=== PATIENT | female | born 1970 | race Two or more races ===

== ENCOUNTER 2016-03-30 09:33 | Emergency (ER) | payer SELFPAY ==
[~2016-03-30] VITALS: Ht 157.5 cm; Wt 76.2 kg
[2016-03-30 09:52] VITALS: BP 131/63
[2016-03-30 11:13] LABS: FREE T4 0.96 ng/dL (0.76-1.46)
--- NOTE | 2016-03-30 11:27 | PHYS DOC ---
Past Medical History Past Medical History: GERD Past Surgical History: Other Additional Past Surgical Histo: ECTOPIC ( TUBAL REMOVAL TO RIGHT SIDE ) Alcohol Use: None Drug Use: None Adult General Chief Complaint Chief Complaint: SORE THROAT HPI HPI Patient is a 45 year old since to emergency department stating that she's had a cough and congestion for the last 2 weeks which is improved. She is now stating that she has a sore throat around her Emmanuel apple. She states that this is been hurting and has increased pain whenever she moves around. She has not taken anything for pain and discomfort. She denies having any history of thyroid problems. She is able to swallow without difficulty. Patient is [place]- speaking only all information was obtained through nursing staff who speaks [place]. Review of Systems Review of Systems Constitutional: Denies fever or chills [] Eyes: Denies change in visual acuity, redness, or eye pain [] HENT: Denies nasal congestion. C/o pain near the emmanuel apple Respiratory: Denies cough or shortness of breath [] Cardiovascular: No additional information not addressed in HPI [] GI: Denies abdominal pain, nausea, vomiting, bloody stools or diarrhea [] : Denies dysuria or hematuria [] Musculoskeletal: Denies back pain or joint pain [] Integument: Denies rash or skin lesions [] Neurologic: Denies headache, focal weakness or sensory changes [] Allergies Allergies Allergies Coded Allergies Type Severity Reaction Last Updated Verified No Known Drug Allergies 08/18/14 No Physical Exam Physical Exam Constitutional: Well developed, well nourished, no acute distress, non-toxic appearance. [] HENT: Normocephalic, atraumatic, bilateral external ears normal, oropharynx moist, no oral exudates, nose normal. Lateral tympanic membranes appear to be normal. Throat with no erythematous no drainage noted no exudate noted. Patient does have a slightly enlarged thyroid. Eyes: PERRLA, EOMI, conjunctiva normal, no discharge. [] Neck: Normal range of motion, no tenderness, supple, no stridor. [] Cardiovascular:Heart rate regular rhythm, no murmur [] Lungs & Thorax: Bilateral breath sounds clear to auscultation [] Skin: Warm, dry, no erythema, no rash. [] Back: No tenderness Extremities: No tenderness, no cyanosis, no clubbing, ROM intact, no edema. [] Neurologic: Alert and oriented X 3, normal motor function, normal sensory function, no focal deficits noted. [] Psychologic: Affect normal, judgement normal, mood normal. [] Current Patient Data Vital Signs Vital Signs Date Time Temp Pulse Resp B/P Pulse Ox O2 Delivery O2 Flow Rate FiO2 03/30/16 09:52 98.3 93 16 99 Room Air 98.3 Lab Values Laboratory Tests Test 03/30/16 10:39 Thyroid Stimulating Hormone (TSH) 2.132uIU/mL (0.358-3.74) Free Thyroxine 0.96ng/dL (0.76-1.46) EKG EKG [] Radiology/Procedures Radiology/Procedures [] Course & Med Decision Making Course & Med Decision Making Pertinent Labs and Imaging studies reviewed. (See chart for details) TSH and free T4 was normal. Patient will be encouraged to use Tylenol or ibuprofen for pain and discomfort will also recommend that she follow-up with her primary care physician for further evaluation. Patient will be discharged home in stable condition signs and symptoms to return back to the emergency department has been provided. A shunt agrees with discharge instructions treatment regimens and follow-up recommendations. [] Dragon Disclaimer Dragon Disclaimer This electronic medical record was generated, in whole or in part, using a voice recognition dictation system. Departure Departure Impression: Primary Impression: Sore throat Disposition: 01 HOME, SELF-CARE Condition: STABLE Referrals: NO PCP (PCP) Patient Instructions: Sore Throat, [id number] Additional Instructions: Activity as tolerated. Tylenol or ibuprofen for pain and discomfort. Drink plenty of fluids. Follow-up through primary care physician for further evaluation of your throat discomfort. Return back to emergency prior signs symptoms of become worse. PIPE GUARDADO NP Mar 30, 2016 11:27
== END 2016-03-30 11:45 | disposition home or self-care (01) ==
LOC: ER 09:33
DX: J02.9 Acute pharyngitis, unspecified (principal)
CPT/HCPCS: 36415; 84439; 84443; 99284

== ENCOUNTER 2016-12-03 08:51 | Emergency (ER) | payer OTHER ==
[2016-12-03 09:00] VITALS: BP 144/82
[2016-12-03] MEDS ORDERED: AMOX1TAB61 PO (09:23)
--- NOTE | 2016-12-03 09:23 | PHYS DOC ---
Past Medical History Past Medical History: GERD Past Surgical History: Other Additional Past Surgical Histo: ECTOPIC ( TUBAL REMOVAL TO RIGHT SIDE ) Alcohol Use: None Drug Use: None Adult General Chief Complaint Chief Complaint: EARACHE/EAR PAIN HPI HPI Patient is a 45 year old female presents to the emergency department with a history of right ear pain, sore throat and cough for the last 3 weeks with occasional dizziness. Patient denies fever, chills, nausea or vomiting. Patient has not taken anything for the symptoms. Review of Systems Review of Systems Constitutional: Denies fever or chills [] Eyes: Denies change in visual acuity, redness, or eye pain [] HENT: nasal congestion and sore throat [] Respiratory: Denies cough or shortness of breath [] Cardiovascular: No additional information not addressed in HPI [] GI: Denies abdominal pain, nausea, vomiting, bloody stools or diarrhea [] : Denies dysuria or hematuria [] Musculoskeletal: Denies back pain or joint pain [] Integument: Denies rash or skin lesions [] Neurologic: Denies headache, focal weakness or sensory changes [] Endocrine: Denies polyuria or polydipsia [] Allergies Allergies Allergies Coded Allergies Type Severity Reaction Last Updated Verified No Known Drug Allergies 08/18/14 No Physical Exam Physical Exam Constitutional: Well developed, well nourished, no acute distress, non-toxic appearance. [] HENT: Normocephalic, atraumatic, bilateral external ears normal, oropharynx moist, no oral exudates, nose normal. Bilateral TM normal, patient with right maxillary sinus tenderness, Throat with post nasal drip noted. No enlarged anterior cervical adenopathy noted. Eyes: PERRLA, EOMI, conjunctiva normal, no discharge. [] Neck: Normal range of motion, no tenderness, supple, no stridor. [] Cardiovascular:Heart rate regular rhythm, no murmur [] Lungs & Thorax: Bilateral breath sounds clear to auscultation [] Skin: Warm, dry, no erythema, no rash. [] Extremities: No tenderness, no cyanosis, no clubbing, ROM intact, no edema. [] Neurologic: Alert and oriented X 3, normal motor function, normal sensory function, no focal deficits noted. [] Psychologic: Affect normal, judgement normal, mood normal. [] Current Patient Data Vital Signs Vital Signs Date Time Temp Pulse Resp B/P (MAP) Pulse Ox O2 Delivery O2 Flow Rate FiO2 12/03/16 09:00 98.3 90 18 99 Room Air 98.3 Lab Values Laboratory Tests Test 12/03/16 09:46 POC Urine HCG, Qualitative Hcg negative (Negative) EKG EKG [] Radiology/Procedures Radiology/Procedures [][facility] [address] [place] [address] IMAGING REPORT Signed PATIENT: LEORA IGLESIAS ACCOUNT: [id number] : 1970 LOCATION: ER AGE: 45 SEX: F EXAM STATUS: REG ER ORD. PHYSICIAN: PIPE GUARDADO APRN REASON: dizziness, right sinus pressure, family hx brain tumors PROCEDURE: CT HEAD WO CONTRAST CT brain without contrast. History: Dizziness right-sided pressure for 2 weeks, family history of brain tumors CT scan of brain was done without contrast. There is no intracranial hemorrhage or subdural hematoma. Ventricles are normal in size. There is no mass effect or shift of the midline. MRI is more sensitive for early masses. Sinuses are clear. Impression: 1. No intracranial hemorrhage or definite mass or acute finding noted. One or more of the following individualized dose reduction techniques were utilized for this examination: 1. Automated exposure control 2. Adjustment of the mA and/or kV according to patient size 3. Use of iterative reconstruction technique DICTATED and SIGNED BY: ALBERTO SCHROEDER MD DATE: 12/03/16 1007 CC: PIPE GUARDADO APRN; NO PCP; NON,STAFF ~ Course & Med Decision Making Course & Med Decision Making Pertinent Labs and Imaging studies reviewed. (See chart for details) Patient had stated to the RN that she has a family hx of brain tumors and is concerned because of the dizziness. Patient also stated to the RN that she has had irregular menstrual cycles and would that to be checked as well. CT can negative for abnormalities. Patient was provided with CT results. Patient will be placed on augmentin with recommendations for sudafed and mucinex DM. Recommended plenty of fluids. Tylenol or Ibuprofen for fevers. Patient was recommended to followup with primary care provider for evaluation of irregular menstrual cycle. Patient will be discharged home in stable condition. Signs and symptoms to return to the emergency department has been provided. All questions and concerns have been answered. [] Dragon Disclaimer Dragon Disclaimer This electronic medical record was generated, in whole or in part, using a voice recognition dictation system. Departure Departure Impression: Primary Impression: Sinusitis Disposition: 01 HOME, SELF-CARE Condition: STABLE Referrals: NO PCP (PCP) Patient Instructions: Sinusitis, [id number] Additional Instructions: Activity as tolerated Medication as prescribed Tylenol or Ibuprofen for pain, fever and generalized body aches and discomfort Sudafed and Mucinex DM as prescribed by manufacture over the counter Drink plenty of water, gatorade or propel. Followup with primary care provider in 5-7 days for your irregular menstrual cycle. Return to the emergency department as needed for signs and symptoms that become worse. Scripts Amoxicillin/Potassium Clav (AUGMENTIN 875-125 TABLET) 1 Each Tablet 1 TAB PO BID, #20 TAB Prov: PIPE GUARDADO APRN 12/03/16 Problem Qualifiers Primary Impression: Sinusitis Sinusitis location: unspecified location Chronicity: unspecified Qualified Codes: J32.9 - Chronic sinusitis, unspecified PIPE GUARDADO APRN Dec 03, 2016 09:23
--- NOTE | 2016-12-03 10:13 | RAD ---
CT brain without contrast. History: Dizziness right-sided pressure for 2 weeks, family history of brain tumors CT scan of brain was done without contrast. There is no intracranial hemorrhage or subdural hematoma. Ventricles are normal in size. There is no mass effect or shift of the midline. MRI is more sensitive for early masses. Sinuses are clear. Impression: 1. No intracranial hemorrhage or definite mass or acute finding noted. One or more of the following individualized dose reduction techniques were utilized for this examination: 1. Automated exposure control 2. Adjustment of the mA and/or kV according to patient size 3. Use of iterative reconstruction technique
== END 2016-12-03 10:22 | disposition home or self-care (01) ==
LOC: ER 08:51
DX: J32.0 Chronic maxillary sinusitis (principal); K21.9 Gastro-esophageal reflux disease without esophagitis
CPT/HCPCS: 70450; 81025; 99284-25

== ENCOUNTER 2019-12-16 07:39 | Emergency (ER) | payer OTHER ==
[~2019-12-16] VITALS: Ht 160 cm; Wt 86.0 kg
[~2019-12-16 07:39] MED LIST: AMOX1TAB61 PO
[2019-12-16 07:43] VITALS: BP 141/69
[2019-12-16] MEDS ORDERED: MECL-75 PO (07:53)
[2019-12-16] MEDS ORDERED: PSEU120T9 PO (07:53)
--- NOTE | 2019-12-16 07:53 | PHYS DOC ---
Past Medical History Past Medical History: GERD Past Surgical History: Other Additional Past Surgical Histo: ECTOPIC ( TUBAL REMOVAL TO RIGHT SIDE) Smoking Status: Never Smoker Alcohol Use: None Drug Use: None General Adult EDM: Chief Complaint: EARACHE/EAR PAIN HPI: HPI: Patient is a 48 year old female who presents with a right ear pain that is described as a fullness over the last week is been worse over the last day. Patient describes feeling somewhat off balance with some muffled hearing. Patient denies any nausea or vomiting. Patient has a history of seasonal allergies and that is been active over the last week or so. Patient denies any fevers chills cough or shortness of breath. Patient denies any nausea or vomiting Review of Systems: Review of Systems: Constitutional: Denies fever or chills. [] Eyes: Denies change in visual acuity. [] HENT: Complains of nasal congestion and some right ear fullness with some hearing loss Respiratory: Denies cough or shortness of breath. [] Cardiovascular: Denies chest pain or edema. [] GI: Denies abdominal pain, nausea, vomiting, bloody stools or diarrhea. [] : Denies dysuria. [] Musculoskeletal: Denies back pain or joint pain. [] Integument: Denies rash. [] Neurologic: Denies headache, focal weakness or sensory changes. But has some dizziness Endocrine: Denies polyuria or polydipsia. [] Lymphatic: Denies swollen glands. [] Psychiatric: Denies depression or anxiety. [] Heart Score: Risk Factors: Risk Factors: DM, Current or recent (<one month) smoker, HTN, HLP, family history of CAD, obesity. Risk Scores: Score 0 - 3: 2.5% MACE over next 6 weeks - Discharge Home Score 4 - 6: 20.3% MACE over next 6 weeks - Admit for Clinical Observation Score 7 - 10: 72.7% MACE over next 6 weeks - Early Invasive Strategies Allergies: Allergies: Allergies Coded Allergies Type Severity Reaction Last Updated Verified No Known Drug Allergies 08/18/14 No Physical Exam: PE: Constitutional: Well developed, well nourished, no acute distress, non-toxic appearance. [] HENT: Normocephalic, atraumatic, mild amount of fluid behind the right TM without erythema or loss of landmarks oropharynx moist, no oral exudates, nose normal. [] Eyes: PERRLA, EOMI, conjunctiva normal, no discharge. [] No nystagmus Neck: Normal range of motion, no tenderness, supple, no stridor. [] Cardiovascular:Heart rate regular rhythm, peripheral pulses are intact, cap refill is brisk Lungs & Thorax: Bilateral breath sounds clear, no respiratory distress Abdomen: soft, no tenderness, no masses, no pulsatile masses. [] Skin: Warm, dry, no erythema, no rash. [] Back: No tenderness, no CVA tenderness. [] Extremities: No tenderness, no cyanosis, no clubbing, ROM intact, no edema. [] Neurologic: Alert and oriented X 3, normal motor function, normal sensory function, no focal deficits noted. [] Cerebellar exam grossly intact Psychologic: Affect normal, judgement normal, mood normal. [] EKG: EKG: [] Radiology/Procedures: Radiology/Procedures: [] Course & Med Decision Making: Course & Med Decision Making Pertinent Labs and Imaging studies reviewed. (See chart for details) [] 48-year-old female presents with some muffled hearing and right ear pain as well as some dizziness which is most likely due to a serous otitis media due to seasonal allergies. Patient was placed on decongestants and meclizine for dizziness. Return precautions given. No evidence of acute stroke. No indication for antibiotics at this time. Guillermo Disclaimer: Guillermo Disclaimer: This electronic medical record was generated, in whole or in part, using a voice recognition dictation system. Departure Departure Impression: Primary Impression: Right serous otitis media Disposition: 01 DC HOME SELF CARE/HOMELESS Condition: STABLE Referrals: NO PCP (PCP) [facility] [address] [place] [address] [facility] [address] [place] [address] [facility] [address] Patient Instructions: Serous Otitis Media Additional Instructions: EMERGENCY DEPARTMENT GENERAL DISCHARGE INSTRUCTIONS THANK YOU for coming to [facility] Emergency Department (ED) today and trusting us with your care. We trust that you had a positive experience in our Emergency Department. If you wish to speak to the department Management you can contact the emergency department rn at . YOUR FOLLOW UP INSTRUCTIONS ARE FOLLOWS: Do you have a private doctor? If you do not have a private doctor, please ask for a resource list of physicians or clinics that may be able to assist you with follow up care. The Emergency Physician has interpreted your x-rays. The X-ray specialist will also review them. If there is a change in the findings you will be notified in 48 hours when at all possible. A lab test or lab culture may have been done, your results will be reviewed and you will be notified if you need a change in treatment. ADDITIONAL INSTRUCTIONS AND INFORMATION Your care today has been supervised by a physician who is specially trained in emergency care. Many problems require more than one evaluation for a complete diagnosis and treatment. We recommend that you schedule your follow up appointment as recommended to ensure complete treatment of your illness or injury. If you are unable to obtain follow up care and continue to have a problem, or if your condition worsens we recommend that you return to the ED. We are not able to safely determine your condition over the phone nor are we able to give sound medical advice over the phone. For these safety reasons, if you call for medical advice we will ask you to come to the ED for further evaluation If you have any questions regarding these discharge instructions please call the ED at . SAFETY INFORMATION In the interest of safety, wellness, and injury prevention; we encourage you to wear your seatbelt, if you smoke; quit smoking, and we encourage your family to use protective helmet for bicycling and other sporting events that present an increased risk for head injury. IF YOUR SYMPTOMS WORSEN OR NEW SYMPTOMS DEVELOP, OR YOU HAVE CONCERNS ABOUT YOUR CONDITION; OR IF YOUR CONDITION WORSENS WHILE YOU ARE WAITING FOR YOUR FOLLOW UP AP POINTMENT; EITHER CONTACT YOUR PRIMARY CARE DOCTOR, THE PHYSICIAN WHOSE NAME AND NUMBER YOU WERE GIVEN, OR RETURN TO THE ED IMMEDIATELY. Scripts Meclizine Hcl (MECLIZINE HCL) 25 Mg Tablet 25 MG PO PRN TID PRN for dizziness, #30 dizziness Prov: RAFAEL JAMES MD 12/16/19 Pseudoephedrine Hcl (SUDAFED 12-HOUR) 120 Mg Tablet.er 1 TAB PO BID, #20 TAB Prov: RAFAEL JAMES MD 12/16/19 RAFAEL JAMES MD Dec 16, 2019 07:53
== END 2019-12-16 07:56 | disposition home or self-care (01) ==
LOC: ER 07:39
DX: H65.91 Unspecified nonsuppurative otitis media, right ear (principal); R42 Dizziness and giddiness; K21.9 Gastro-esophageal reflux disease without esophagitis
CPT/HCPCS: 99282

== ENCOUNTER 2020-01-13 09:04 | Emergency (ER) | payer OTHER ==
[~2020-01-13] VITALS: Ht 152.4 cm; Wt 84.9 kg
[~2020-01-13 09:04] MED LIST changes: +MECL-75 PO; +PSEU120T9 PO
[2020-01-13] MEDS ORDERED: MECLIZINE HCL 12.5 MG TABLET. PO ONE (09:45)
[2020-01-13] MEDS ORDERED: DEXAMETHASONE SOD PHOS 20 MG/5 ML VIAL. IVP ONE (09:45)
[2020-01-13] MEDS ORDERED: IV NORMAL SALINE 1000ML BAG 1,000 ML IV ONE (09:45)
[2020-01-13 10:23] LABS: BASO # 0.1 x10^3/uL (0.0-0.2); BASO % 1 % (0-3); EOS % 0 % (0-3); HEMATOCRIT 40.1 % (36.0-47.0); HEMOGLOBIN 13.4 g/dL (12.0-15.5); LYMPH # 1.6 x10^3/uL (1.0-4.8); LYMPH % 16 % (24-48); MEAN CORPUSCULAR HEMOGLOBIN 28 pg (25-35); MEAN CORPUSCULAR HGB CONC 33 g/dL (31-37); MEAN CORPUSCULAR VOLUME 85 fL (79-100); MONO # 0.6 x10^3/uL (0.0-1.1); MONO % 6 % (0-9); NEUT # 7.9 x10^3/uL (1.8-7.7); NEUT % 78 % (31-73); PLATELET COUNT 325 x10^3/uL (140-400); RED BLOOD COUNT 4.74 x10^6/uL (3.50-5.40); RED CELL DISTRIBUTION WIDTH 13.8 % (11.5-14.5); WHITE BLOOD COUNT 10.2 x10^3/uL (4.0-11.0)
[2020-01-13 10:34] LABS: PROTHROMBIN TIME PATIENT 12.6 SEC (11.7-14.0)
[2020-01-13 10:38] LABS: CREATININE 0.7 mg/dL (0.6-1.0); GFR 88.6
[2020-01-13 10:44] LABS: BILIRUBIN,URINE NEGATIVE (NEG); CLARITY,URINE CLEAR; COLOR,URINE YELLOW; NITRITE,URINE NEGATIVE (NEG); PH,URINE 5.5 (<5.0-8.0); PROTEIN,URINE NEGATIVE (NEG-TRACE); UROBILINOGEN,URINE 0.2 mg/dL (0.2 mg/dL)
[2020-01-13 10:44] LABS: ALBUMIN 3.7 g/dL (3.4-5.0); ALBUMIN/GLOBULIN RATIO 0.8 (1.0-1.7); TOTAL BILIRUBIN 0.2 mg/dL (0.2-1.0); TOTAL PROTEIN 8.5 g/dL (6.4-8.2)
--- NOTE | 2020-01-13 10:45 | PHYS DOC ---
Past Medical History Past Medical History: GERD, Sinusitis Past Surgical History: Other Additional Past Surgical Histo: ECTOPIC ( TUBAL REMOVAL TO RIGHT SIDE) Smoking Status: Never Smoker Alcohol Use: None Drug Use: None General Adult EDM: Chief Complaint: DIZZY/LIGHT HEADED HPI: HPI: Patient is a 49 year old female who presents with vertigo due to R ear pressure . Pt dx with sinusitis one month ago and complains of vertigo since then. Also reports nausea. Pt not taking Meclizine and Pseudoephedrine due to being sleepy, hot, and diarrhea. Review of Systems: Review of Systems: Constitutional: Denies fever or chills Eyes: Denies redness or eye pain HENT: Denies nasal congestion or sore throat Respiratory: Denies cough or shortness of breath Cardiovascular: Denies chest pain or palpitations GI: Denies abdominal pain. Reports nausea. : Denies dysuria or hematuria Musculoskeletal: Denies back pain or joint pain Integument: Denies rash or skin lesions Neurologic: Denies headache, focal weakness or sensory changes Complete systems were reviewed and found to be within normal limits, except as documented in this note. Heart Score: HEART Score for Chest Pain: HEART Score for Chest Pain Response (Comments) Value History Slighlty/Non-Suspicious 0 ECG Normal 0 Age >45 - < 65 1 Risk Factors No Risk Factors 0 Troponin < Normal Limit 0 Total 1 Family History: Family History: Older sister cervical cancer, aunt and uncle had stomach cancer. Current Medications: Current Medications Medications (Trade) Dose Ordered Sig/Aida Start Time Stop Time Status Last Admin Dose Admin Dexamethasone Sodium Phosphate (Decadron) 10 mg 1X ONCE 01/13/20 09:45 01/13/20 09:46 DC 01/13/20 10:04 10 MG Meclizine HCl (Antivert) 25 mg 1X ONCE 01/13/20 09:45 01/13/20 09:46 DC 01/13/20 10:04 25 MG Sodium Chloride 1,000 ml @ 1,000 mls/hr 1X ONCE 01/13/20 09:45 01/13/20 10:44 01/13/20 10:06 1,000 MLS/HR Allergies: Allergies: Allergies Coded Allergies Type Severity Reaction Last Updated Verified No Known Drug Allergies 08/18/14 No Physical Exam: PE: Constitutional: Well developed, well nourished, no acute distress, non-toxic appearance HENT: Normocephalic, atraumatic Eyes: Conjunctiva normal, no discharge Neck: Normal range of motion, no tenderness, supple Lungs & Thorax: No respiratory distress, equal chest rise and fall Abdomen: Soft, no tenderness Skin: Warm, dry, no erythema, no rash Back: No tenderness, no CVA tenderness Extremities: No tenderness, ROM intact, no edema Neurologic: Alert and oriented X 3, normal motor function, normal sensory function, no focal deficits noted Psychologic: Affect normal, judgment normal Current Patient Data: Labs: Laboratory Tests Test 01/13/20 10:00 White Blood Count 10.2 x10^3/uL (4.0-11.0) Red Blood Count 4.74 x10^6/uL (3.50-5.40) Hemoglobin 13.4 g/dL (12.0-15.5) Hematocrit 40.1 % (36.0-47.0) Mean Corpuscular Volume 85 fL (79-100) Mean Corpuscular Hemoglobin 28 pg (25-35) Mean Corpuscular Hemoglobin Concent 33 g/dL (31-37) Red Cell Distribution Width 13.8 % (11.5-14.5) Platelet Count 325 x10^3/uL (140-400) Neutrophils (%) (Auto) 78 % (31-73) H Lymphocytes (%) (Auto) 16 % (24-48) L Monocytes (%) (Auto) 6 % (0-9) Eosinophils (%) (Auto) 0 % (0-3) Basophils (%) (Auto) 1 % (0-3) Neutrophils # (Auto) 7.9 x10^3/uL (1.8-7.7) H Lymphocytes # (Auto) 1.6 x10^3/uL (1.0-4.8) Monocytes # (Auto) 0.6 x10^3/uL (0.0-1.1) Eosinophils # (Auto) 0.0 x10^3/uL (0.0-0.7) Basophils # (Auto) 0.1 x10^3/uL (0.0-0.2) Laboratory Tests 01/13/20 10:00 Vital Signs: Vital Signs Date Time Temp Pulse Resp B/P (MAP) Pulse Ox O2 Delivery O2 Flow Rate FiO2 01/13/20 09:40 97.8 100 20 147/72 (97) 97 Room Air 97.8 EKG: EKG: @956 sinus tachy, QRS 72 ms, QT/ QTc 298/ 403 ms, no ST elevation Radiology/Procedures: Radiology/Procedures: [] Course & Med Decision Making: Course & Med Decision Making Pertinent Labs and Imaging studies reviewed. (See chart for details) [] Dragon Disclaimer: Dragon Disclaimer: This electronic medical record was generated, in whole or in part, using a voice recognition dictation system. Departure Departure Impression: Primary Impression: Dizziness Disposition: 01 DC HOME SELF CARE/HOMELESS Condition: STABLE Referrals: MAGNUS DENNEY APRN (PCP) BRIAN BEATTY MD, COLLEEN N MD Patient Instructions: Dizziness, [id number], Sinusitis, Jgft-[id number], Vertigo, [id number] Scripts Amoxicillin/Potassium Clav (AUGMENTIN 875-125 TABLET) 1 Each Tablet 1 TAB PO BID, #14 TAB Prov: JACKSON LACKEY DO 01/13/20 Meclizine Hcl (MECLIZINE HCL) 25 Mg Tablet 1 TAB PO Q8HRS PRN for dizziness, #20 TAB Prov: JACKSON LACKEY DO 01/13/20 Prednisone (PREDNISONE) 20 Mg Tablet 2 TAB PO DAILY, #8 TAB Prov: JACKSON LACKEY DO 01/13/20 JACKSON LACKEY DO Jan 13, 2020 10:45
[2020-01-13 10:51] LABS: CREATINE KINASE 80 U/L (26-192)
--- NOTE | 2020-01-13 10:59 | RAD ---
Examination: CT HEAD WO CONTRAST History: Reason: dizziness, pain / Spl. Instructions: / History: Comparison/Correlation: None Findings: Axial images of the head were obtained without contrast. Coronal images provided. Ventricles are normal size. Normal coe-white matter differentiation. No intracranial hemorrhage, midline shift, or mass effect. Bony structures are . Minimal chronic paranasal sinusitis. Impression: No suspicious process. PQRS Compliance Statement: One or more of the following individualized dose reduction techniques were utilized for this examination: 1. Automated exposure control 2. Adjustment of the mA and/or kV according to patient size 3. Use of iterative reconstruction technique Electronically signed by: Albert Laura MD (01/13/2020 10:56 AM) [id number]
[2020-01-13 11:00] LABS: BACTERIA,URINE FEW /HPF (0-FEW); RBC,URINE 0 /HPF (0-2)
[2020-01-13] MEDS ORDERED: MECL-75 PO (11:54)
[2020-01-13] MEDS ORDERED: AMOX1TAB61 PO (11:54)
[2020-01-13] MEDS ORDERED: PRED20TA PO (11:54)
[2020-01-13 12:06] VITALS: BP 152/88
--- NOTE | 2020-01-13 16:19 | EKG ---
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
== END 2020-01-13 12:26 | disposition home or self-care (01) ==
LOC: ER 09:04
DX: R42 Dizziness and giddiness (principal); R11.0 Nausea; J32.9 Chronic sinusitis, unspecified; K21.9 Gastro-esophageal reflux disease without esophagitis; Z98.890 Other specified postprocedural states
CPT/HCPCS: 36415; 70450; 80053; 81001; 82553; 83735; 84484; 85025; 85610; 85730; 93005; 96361; 96374; 99285; J1100; J7030; J8597

== ENCOUNTER 2020-07-19 09:41 | Emergency (ER) | payer OTHER ==
[~2020-07-19] VITALS: Ht 165.1 cm; Wt 82.6 kg
[~2020-07-19 09:41] MED LIST changes: +PRED20TA PO
[2020-07-19] MEDS ORDERED: DEXAMETHASONE 4 MG TABLET PO ONE (10:15)
[2020-07-19 10:41] LABS: BILIRUBIN,URINE NEGATIVE (NEG); CLARITY,URINE CLEAR; COLOR,URINE YELLOW; NITRITE,URINE NEGATIVE (NEG); PH,URINE 5.5 (<5.0-8.0); PROTEIN,URINE NEGATIVE (NEG-TRACE); UROBILINOGEN,URINE 0.2 mg/dL (0.2 mg/dL)
[2020-07-19 10:49] LABS: BACTERIA,URINE 0 /HPF (0-FEW); RBC,URINE 0 /HPF (0-2); WBC,URINE OCC /HPF (0-4)
[2020-07-19] MEDS ORDERED: PRED20TA PO (10:56)
--- NOTE | 2020-07-19 10:56 | PHYS DOC ---
Past Medical History Past Medical History: GERD, Sinusitis, Other Additional Past Medical Histor: Vertigo Past Surgical History: Other Additional Past Surgical Histo: ECTOPIC ( TUBAL REMOVAL TO RIGHT SIDE) Smoking Status: Never Smoker Alcohol Use: None Drug Use: None General Adult EDM: Chief Complaint: DIZZY/LIGHT HEADED HPI: HPI: Patient is a 49 year old [f__sex] who presents with [] Review of Systems: Review of Systems: Constitutional: Denies fever or chills Eyes: Denies redness or eye pain HENT: Denies nasal congestion or sore throat Respiratory: Denies cough or shortness of breath Cardiovascular: Denies chest pain or palpitations GI: Denies abdominal pain, nausea, or vomiting : Denies dysuria or hematuria Musculoskeletal: Denies back pain or joint pain Integument: Denies rash or skin lesions Neurologic: Denies headache, focal weakness or sensory changes Complete systems were reviewed and found to be within normal limits, except as documented in this note. Heart Score: C/O Chest Pain: N/A Current Medications: Current Medications Medications (Trade) Dose Ordered Sig/Aida Start Time Stop Time Status Last Admin Dose Admin Dexamethasone (Decadron) 10 mg 1X ONCE 07/19/20 10:15 07/19/20 10:16 DC 07/19/20 10:36 10 MG Allergies: Allergies: Allergies Coded Allergies Type Severity Reaction Last Updated Verified No Known Drug Allergies 08/18/14 No Physical Exam: PE: Constitutional: Well developed, well nourished, no acute distress, non-toxic appearance HENT: Normocephalic, atraumatic Eyes: PERRL, EOMI, conjunctiva normal, no discharge Neck: Normal range of motion, no tenderness, supple Lungs & Thorax: No respiratory distress, equal chest rise and fall Abdomen: Soft, no tenderness, no guarding/rebound tenderness/distention Pelvic: performed [place] [employer], external genitalia normal, thick white discharge in vaginal vault, cervix nonfriable, no CMT, no adnexal tenderness or masses appreciated Skin: Warm, dry, no erythema, no rash Back: No tenderness, no CVA tenderness Extremities: No tenderness, ROM intact, no edema Neurologic: Alert and oriented X 3, normal motor function, normal sensory function, no focal deficits noted Psychologic: Affect normal, judgment normal Current Patient Data: Labs: Laboratory Tests Test 07/19/20 10:10 Urine Collection Type Unknown Urine Color Yellow Urine Clarity Clear Urine pH 5.5 (<5.0-8.0) Urine Specific [place] 1.020 (1.000-1.030) Urine Protein Negative mg/dL (NEG-TRACE) Urine Glucose (UA) Negative mg/dL (NEG) Urine Ketones (Stick) Negative mg/dL (NEG) Urine Blood Trace (NEG) Urine Nitrite Negative (NEG) Urine Bilirubin Negative (NEG) Urine Urobilinogen Dipstick 0.2 mg/dL (0.2 mg/dL) Urine Leukocyte Esterase Trace (NEG) Urine RBC 0 /HPF (0-2) Urine WBC Occ /HPF (0-4) Urine Squamous Epithelial Cells Many /LPF Urine Bacteria 0 /HPF (0-FEW) Vital Signs: Vital Signs Date Time Temp Pulse Resp B/P (MAP) Pulse Ox O2 Delivery O2 Flow Rate FiO2 07/19/20 10:00 97.8 83 16 127/72 (90) 98 97.8 EKG: EKG: @1026 NSR at 74bpm, NO ST elevation, QRS 68ms, QT/QTc 342/380ms Radiology/Procedures: Radiology/Procedures: [] Course & Med Decision Making: Course & Med Decision Making Pertinent Labs and Imaging studies reviewed. (See chart for details) [] Dragon Disclaimer: Dragon Disclaimer: This electronic medical record was generated, in whole or in part, using a voice recognition dictation system. Departure Departure Impression: Primary Impression: Dizziness Additional Impression: Dysuria Disposition: HOME / SELF CARE / HOMELESS Condition: STABLE Referrals: NO PCP (PCP) JACKSON SIMMONS MD Patient Instructions: Dizziness, [id number], Dysuria, Vertigo, [id number] Additional Instructions: Continue previously prescribed meclizine as directed Scripts Prednisone (PREDNISONE) 20 Mg Tablet 2 TAB PO DAILY, #8 TAB Start this prescription tomorrow, Monday07/20/20 Prov: JACKSON LACKEY DO 07/19/20 JACKSON LACKEY DO July 19, 2020 10:56
[2020-07-19 12:00] VITALS: BP 111/57
--- NOTE | 2020-07-19 13:03 | EKG ---
[facility] [address] [place] [address] Test Date: 2020-07-19 Test Time: 10:26:56 Pat Name: LEORA IGLESIAS Department: Room: Gender: F Rn Concurrent Review: : 1970 Requested By: JACKSON LACKEY Order Number: [id number] Reading MD: Measurements Intervals [place] Rate: 74 P: 42 CA: 124 QRS: 39 QRSD: 68 T: 37 QT: 342 QTc: 380 Interpretive Statements SINUS RHYTHM NORMAL ECG RI6.02 No previous ECG available for comparison
[2020-07-20 15:12] LABS: GC PROBE Negative (Negative)
== END 2020-07-19 13:05 | disposition home or self-care (01) ==
LOC: ER 09:41
DX: R42 Dizziness and giddiness (principal); R30.0 Dysuria; K21.9 Gastro-esophageal reflux disease without esophagitis
CPT/HCPCS: 81001; 87086; 87491; 87591; 93005; 99284; Q0111